=== PATIENT | female | born 1925 | race Native Hawaiian/Other Pacific Islander ===

== ENCOUNTER 2016-07-03 09:24 | Inpatient (IN) | payer OTHER ==
[~2016-07-03 09:24] MED LIST: ACET-309 PO; CARDIZEM60 MG PO; FERROUS FUMARA325 MG PO; FURO20TA67 PO; FURO40TA93 PO; HEARTBURN150 MG OR; HYDR-2748 PO; KLOR-CON M2020 MEQ PO; LANOXIN 0.120.125 M1 PO; LEVO0.0529 PO; MIRTAZAPINE ODT15 MG PO; MULTIVITAMIN OR; NAMENDA XR28 MG PO; PANT40TA PO; PROM25TA52 PO; QC ASPIRIN PO; RIVADIS4 TOP; ROPI0.5T PO; TRAM50TA PO; VITAMIN C1 CH1 PO
== END 2016-08-03 08:00 | disposition still patient (30) ==
LOC: PAVB 09:24
PROVIDERS: ADMIT Internal Medicine
DX: Z51.89 Encounter for other specified aftercare (principal)

== ENCOUNTER 2016-08-03 09:00 | Inpatient (IN) | payer OTHER ==
[2016-08-22] MEDS ORDERED: DOC-Q-LAX1 TAB PO (19:30)
[2016-08-22] MEDS ORDERED: MAGNSUS68 PO (19:31)
[2016-08-22] MEDS ORDERED: ALUMSUS6 PO (19:31)
[2016-08-22] MEDS ORDERED: Q TUSSIN DM PO (19:32)
== END 2016-09-03 10:14 | disposition still patient (30) ==
LOC: PAVB 09:00
PROVIDERS: ADMIT Internal Medicine
DX: Z51.89 Encounter for other specified aftercare (principal)

== ENCOUNTER 2016-08-04 07:27 | Outpatient (CLI) | payer OTHER ==
[2016-08-04 08:05] LABS: PLATELET COUNT 183 K/uL (152-353)
[2016-08-04 08:52] LABS: POTASSIUM 3.4 mmol/L (3.6-5.2)
== END 2016-08-04 19:19 | disposition home or self-care (01) ==
LOC: LAB 07:27
PROVIDERS: Internal Medicine
DX: I10 Essential (primary) hypertension (principal); E87.6 Hypokalemia; D64.89 Other specified anemias
CPT/HCPCS: 36415; 80053; 80162; 84443; 85027

== ENCOUNTER 2016-08-22 18:57 | Inpatient (IN) | payer OTHER ==
[~2016-08-22] VITALS: Ht 162.6 cm; Wt 76.0 kg
[2016-08-22 19:23] VITALS: BP 145/91; TEMP 97.6
[2016-08-22] MEDS ORDERED: DOC-Q-LAX1 TAB PO (19:30)
[2016-08-22] MEDS ORDERED: ALUMSUS6 PO (19:31)
[2016-08-22] MEDS ORDERED: MAGNSUS68 PO (19:31)
[2016-08-22] MEDS ORDERED: Q TUSSIN DM PO (19:32)
[2016-08-22 20:22] LABS: PLATELET COUNT 181 K/uL (152-353)
[2016-08-23 02:37] VITALS: BP 146/64; TEMP 97.5; Ht 162.6 cm; Wt 76.0 kg
[2016-08-23 04:00] VITALS: BP 148/61; TEMP 97.6
[2016-08-23 13:26] VITALS: BP 145/70; TEMP 98
[2016-08-23 20:08] VITALS: BP 141/75; TEMP 101.2
[2016-08-24 00:04] VITALS: BP 150/80; TEMP 99.1
[2016-08-24 05:33] VITALS: BP 159/69; TEMP 98.2
[2016-08-24 05:36] LABS: PLATELET COUNT 168 K/uL (152-353)
[2016-08-24 05:59] LABS: POTASSIUM 3.1 mmol/L (3.6-5.2)
[2016-08-24 08:00] VITALS: BP 116/79; TEMP 99.1
[2016-08-24 20:00] VITALS: BP 96/71; TEMP 98.8
[2016-08-25 00:24] VITALS: BP 114/74; TEMP 98.3
[2016-08-25 04:00] VITALS: BP 149/73; TEMP 98.4
[2016-08-25 06:16] LABS: PLATELET COUNT 146 K/uL (152-353)
[2016-08-25 06:27] LABS: POTASSIUM 3.7 mmol/L (3.6-5.2)
[2016-08-25 08:14] VITALS: BP 152/88; TEMP 98.3
[2016-08-25 12:00] VITALS: BP 122/93; TEMP 98.3
[2016-08-25 16:00] VITALS: BP 149/76; TEMP 97.7
[2016-08-25 20:00] VITALS: BP 129/85; TEMP 98.2
[2016-08-26] VITALS: BP 147/56; TEMP 98.5
[2016-08-26 06:00] LABS: PLATELET COUNT 153 K/uL (152-353)
[2016-08-26 06:19] LABS: POTASSIUM 3.8 mmol/L (3.6-5.2)
[2016-08-26 08:00] VITALS: BP 146/73; TEMP 97.8
[2016-08-26 12:00] VITALS: BP 152/87; TEMP 98.1
== END 2016-08-26 12:01 | DRG 690 ==
LOC: ED 18:57 → MED/SURG 08-23 01:10
PROVIDERS: Emergency Medicine
DX: N39.0 Urinary tract infection, site not specified (principal); I10 Essential (primary) hypertension; N18.3 Chronic kidney disease, stage 3 (moderate); E03.8 Other specified hypothyroidism; B96.20 Unspecified Escherichia coli [E. coli] as the cause of diseases classified elsewhere; G30.8 Other Alzheimer's disease; F02.80 Dementia in other diseases classified elsewhere, unspecified severity, without behavioral disturbance, psychotic disturbance, mood disturbance, and anxiety
CPT/HCPCS: 36415; 51702; 80053; 80162; 81000; 83605; 83735; 85027; 87077; 87086; 87088; 87186; 96361; 96365; 96366; 96367; 96372; 96375; 99285; J0696; J1650; J2060; J3411; J3490

== ENCOUNTER 2016-08-31 04:05 | Outpatient (CLI) | payer OTHER ==
[~2016-08-31 04:05] MED LIST changes: +ALUMSUS6 PO; +DOC-Q-LAX1 TAB PO; +MAGNSUS68 PO; +Q TUSSIN DM PO
== END 2016-08-31 06:05 | disposition home or self-care (01) ==
LOC: LAB 04:05
DX: N39.0 Urinary tract infection, site not specified (principal)
CPT/HCPCS: 81000

== ENCOUNTER 2016-09-03 10:36 | Inpatient (IN) | payer OTHER | END 2016-10-01 09:39 | disposition still patient (30) | LOC: PAVB 10:36 | PROVIDERS: ADMIT Internal Medicine | DX: Z51.89 Encounter for other specified aftercare (principal) ==

== ENCOUNTER 2016-10-01 10:24 | Inpatient (IN) | payer OTHER ==
[2016-10-31] MEDS ORDERED: CIPRO500 MG PO (07:49)
== END 2016-11-01 08:06 | disposition still patient (30) ==
LOC: PAVB 10:24
PROVIDERS: ADMIT Internal Medicine
DX: Z51.89 Encounter for other specified aftercare (principal)

== ENCOUNTER 2016-10-06 18:44 | Outpatient (CLI) | payer OTHER | END 2016-10-06 19:40 | disposition home or self-care (01) | LOC: LAB 18:44 | DX: R41.0 Disorientation, unspecified (principal) | CPT/HCPCS: 81000; 87077; 87086; 87088; 87186 ==

== ENCOUNTER 2016-10-30 12:24 | Emergency (ER) | payer OTHER ==
[~2016-10-30] VITALS: Ht 162.6 cm; Wt 74.0 kg
[2016-10-30 13:35] LABS: PLATELET COUNT 235 K/uL (152-353)
[2016-10-30 14:06] LABS: POTASSIUM 3.6 mmol/L (3.6-5.2)
[2016-10-30 15:25] VITALS: BP 159/64; TEMP 97.6
[2016-10-31] MEDS ORDERED: CIPRO500 MG PO (07:49)
== END 2016-10-30 15:59 ==
LOC: ED 12:24
PROVIDERS: Specialist
DX: G25.3 Myoclonus (principal); R53.1 Weakness; T44.1X5A Adverse effect of other parasympathomimetics [cholinergics], initial encounter; Y92.89 Other specified places as the place of occurrence of the external cause
CPT/HCPCS: 36415; 80053; 81000; 85027; 87077; 87086; 87088; 87186; 96365; 99284

== ENCOUNTER 2016-10-30 21:25 | Inpatient (IN) | payer OTHER ==
[~2016-10-30] VITALS: Ht 162.6 cm; Wt 74.1 kg
[2016-10-30 22:21] LABS: PLATELET COUNT 167 K/uL (152-353)
[2016-10-30 22:54] LABS: POTASSIUM 3.3 mmol/L (3.6-5.2)
[2016-10-31 04:14] VITALS: BP 157/63; TEMP 98.2; Ht 162.6 cm; Wt 74.1 kg
[2016-10-31] MEDS ORDERED: CIPRO500 MG PO (07:49)
[2016-10-31 08:00] VITALS: BP 99/69; TEMP 100.3
[2016-10-31 12:00] VITALS: BP 186/87; TEMP 101.5
[2016-10-31 16:00] VITALS: BP 159/57; TEMP 97.3
[2016-10-31 16:02] LABS: PLATELET COUNT 168 K/uL (152-353)
[2016-10-31 16:13] LABS: POTASSIUM 3.5 mmol/L (3.6-5.2)
[2016-10-31 20:00] VITALS: BP 140/40; TEMP 99
[2016-11-01] VITALS: BP 148/61; TEMP 102.2
[2016-11-01 04:00] VITALS: BP 120/70; TEMP 97.5
[2016-11-01 04:56] LABS: PLATELET COUNT 144 K/uL (152-353)
[2016-11-01 05:00] LABS: POTASSIUM 3.3 mmol/L (3.6-5.2)
[2016-11-01 08:00] VITALS: BP 163/78; TEMP 98
[2016-11-01 12:29] VITALS: BP 133/61; TEMP 98.1
[2016-11-01 16:00] VITALS: BP 154/66; TEMP 97.6
[2016-11-01 20:00] VITALS: BP 165/74; TEMP 100
[2016-11-02 00:28] VITALS: BP 152/44; TEMP 98
[2016-11-02 05:14] VITALS: BP 148/76; TEMP 98
[2016-11-02 06:52] LABS: PLATELET COUNT 137 K/uL (152-353)
[2016-11-02 06:57] LABS: POTASSIUM 3.3 mmol/L (3.6-5.2)
[2016-11-02 08:00] VITALS: BP 143/72; TEMP 98
[2016-11-02 12:00] VITALS: BP 142/76; TEMP 98.1
[2016-11-02 16:00] VITALS: BP 141/69; TEMP 97.5
[2016-11-02 20:00] VITALS: BP 158/74; TEMP 97.8
[2016-11-03] VITALS: BP 146/71; TEMP 99.5
[2016-11-03 05:32] LABS: PLATELET COUNT 166 K/uL (152-353)
[2016-11-03 05:33] LABS: POTASSIUM 3.5 mmol/L (3.6-5.2)
[2016-11-03 05:38] VITALS: BP 178/74; TEMP 98
[2016-11-03 08:22] VITALS: BP 144/60; TEMP 97.6
[2016-11-03 12:00] VITALS: BP 138/64; TEMP 97.9
== END 2016-11-03 16:30 | DRG 690 ==
LOC: MED/SURG 21:25
PROVIDERS: ADMIT Internal Medicine
DX: N39.0 Urinary tract infection, site not specified (principal); G30.9 Alzheimer's disease, unspecified; F02.80 Dementia in other diseases classified elsewhere, unspecified severity, without behavioral disturbance, psychotic disturbance, mood disturbance, and anxiety; R41.82 Altered mental status, unspecified; B96.20 Unspecified Escherichia coli [E. coli] as the cause of diseases classified elsewhere; E87.6 Hypokalemia; E87.79 Other fluid overload; R06.09 Other forms of dyspnea; I12.9 Hypertensive chronic kidney disease with stage 1 through stage 4 chronic kidney disease, or unspecified chronic kidney disease; N18.3 Chronic kidney disease, stage 3 (moderate); I48.91 Unspecified atrial fibrillation; G25.3 Myoclonus; R53.1 Weakness; T44.1X5A Adverse effect of other parasympathomimetics [cholinergics], initial encounter; Y92.89 Other specified places as the place of occurrence of the external cause
CPT/HCPCS: 36415; 36600; 80048; 80053; 81000; 82805; 83735; 84100; 85027; 87077; 87086; 87088; 87186; 96365; 96366; 96367; 99284

== ENCOUNTER 2016-11-01 09:22 | Inpatient (IN) | payer OTHER ==
[~2016-11-01 09:22] MED LIST changes: +CIPRO500 MG PO
== END 2016-12-01 09:09 | disposition still patient (30) ==
LOC: PAVB 09:22
PROVIDERS: ADMIT Internal Medicine
DX: R26.9 Unspecified abnormalities of gait and mobility (principal); M62.81 Muscle weakness (generalized); N39.0 Urinary tract infection, site not specified; B96.20 Unspecified Escherichia coli [E. coli] as the cause of diseases classified elsewhere; N18.3 Chronic kidney disease, stage 3 (moderate); I48.91 Unspecified atrial fibrillation
CPT/HCPCS: 87081; J0696

== ENCOUNTER 2016-11-25 21:56 | Outpatient (CLI) | payer OTHER | END 2016-11-25 22:30 | disposition home or self-care (01) | LOC: LAB 21:56 | DX: A04.7 Enterocolitis due to Clostridium difficile (principal); R19.2 Visible peristalsis | CPT/HCPCS: 87045; 87205; 87328; 87329; 87493; 87798; 87899 ==

== ENCOUNTER 2016-12-01 09:48 | Inpatient (IN) | payer OTHER | END 2017-01-01 09:32 | disposition still patient (30) | LOC: PAVB 09:48 | PROVIDERS: ADMIT Internal Medicine | DX: Z51.89 Encounter for other specified aftercare (principal) ==

== ENCOUNTER 2017-01-01 09:54 | Inpatient (IN) | payer OTHER | END 2017-01-31 15:20 | disposition still patient (30) | LOC: PAVB 09:54 | PROVIDERS: ADMIT Internal Medicine | DX: Z51.89 Encounter for other specified aftercare (principal) ==

== ENCOUNTER 2017-02-02 09:31 | Outpatient (CLI) | payer OTHER ==
[2017-02-02 10:07] LABS: PLATELET COUNT 200 K/uL (152-353)
[2017-02-02 10:43] LABS: POTASSIUM 3.9 mmol/L (3.6-5.2)
== END 2017-02-02 10:35 | disposition home or self-care (01) ==
LOC: LAB 09:31
PROVIDERS: Internal Medicine
DX: I10 Essential (primary) hypertension (principal); D64.89 Other specified anemias; E87.6 Hypokalemia
CPT/HCPCS: 80053; 80162; 84443; 85027